=== PATIENT | female | born 1945 | race Caucasian/White ===

== ENCOUNTER 2017-04-12 17:39 | Emergency (ER) | payer OTHER ==
[2017-04-12 17:56] VITALS: BP 149/97; RESP 16; TEMP 98.2; O2SAT 92
--- NOTE | 2017-04-12 18:03 | EDPHY ---
H & P Time Seen by Provider: 04/12/17 17:47 HPI/ROS: Chief complaint. High blood sugar HPI. Patient is 71-year-old female insulin-dependent diabetes who arrived on a bus from [place] this afternoon. She is homeless. While she was waiting for a ride to a homeless custodial she began to feel little bit weak. She called EMS who checked her blood sugar and found to be about 400. Patient's only symptoms is that she has a cough for several days. No chest discomfort. No shortness of breath. No fever, abdominal pain, vomiting or diarrhea. She says she has been using her insulin each day ROS Constitutional. Slight weakness Eyes. no problems with vision ENT. no sore throat, no nasal drainage Cardiovascular. no chest pain Respiratory. no shortness of breath, cough Abdominal. no abdominal pain, no nausea/vomiting, no diarrhea . no problems urinating MS. no calf pain/swelling, no neck/back pain, no joint pain Skin. no rash Lymph. no swollen glands Neuro. no headache, no dizziness, no difficulty walking or with speech Past Medical/Surgical History: Hypertension and insulin-dependent diabetes Social History: Single, homeless, daily smoker, no alcohol Smoking Status: Current every day smoker Physical Exam: General Appearance: Alert well-developed female mild distress vital signs are stable Eyes: Pupils equal and round no pallor or injection. ENT, Mouth: Mucous membranes are moist. Respiratory: No retractions mild inspiratory expiratory rhonchi Cardiovascular: Regular rate and rhythm. Gastrointestinal: Abdomen is soft and nontender, no masses, bowel sounds normal. Neurological: Awake and alert, sensory and motor exams grossly normal. Skin: Warm and dry, no rashes. Musculoskeletal: Neck is supple nontender. Extremities symmetrical, full range of motion. Psychiatric: Patient is oriented X 3, there is no agitation. Constitutional: Initial Vital Signs Temperature (C) 36.8 C 04/12/17 17:39 Heart Rate 93 04/12/17 17:39 Respiratory Rate 16 04/12/17 17:39 Blood Pressure 149/97 H 04/12/17 17:39 O2 Sat (%) 92 04/12/17 17:39 O2 Delivery Mode Room Air Allergies/Adverse Reactions: Penicillins Allergy (Verified 04/12/17 17:51) Home Medications: Medication Instructions Recorded Lantus 100 UNITS/ML (*) 04/12/17 Losartan Potassium 04/12/17 Metformin HCl 04/12/17 Medical Decision Making - Diagnostics Imaging Results: Imaging Impressions Chest X-Ray 04/12/17 18:04 Impression: Chest negative for acute cardiopulmonary abnormality with findings noted as detailed above. Chest x-ray interpreted by me is negative for pneumonia. Consistent with bronchitis Procedures: IV normal saline with 1 L of saline given. 10 units of regular insulin intravenously ED Course/Re-evaluation: Re-evaluation at 6:30 p.m. patient is stable. She and I discussed high blood sugar and treatment plan. She expresses understanding and agreement Re-evaluation at 8:45 p.m.. Patient is stable. Repeat blood sugar 292. She and I discussed treatment plan including criteria for return and importance of follow-up and further evaluation. She expresses understanding and agreement Differential Diagnosis: Hyperglycemia without evidence for diabetic ketoacidosis. Her hyperglycemia is improved after fluids and insulin. I also considered infection. - Data Points Laboratory Results: Laboratory Results 04/12/17 18:00 04/12/17 20:25 04/12/17 04/12/17 04/12/17 20:25 18:00 18:00 WBC RBC Hgb Hct MCV MCH MCHC RDW Plt Count MPV Neut % (Auto) Lymph % (Auto) Coffee % (Auto) Eos % (Auto) Baso % (Auto) Nucleat RBC Rel Count Absolute Neuts (auto) Absolute Lymphs (auto) Absolute Monos (auto) Absolute Eos (auto) Absolute Basos (auto) Absolute Nucleated RBC Immature Gran % Immature Gran # VBG pH 7.33 (7.31-7.42) Sodium 132 mEq/L L mEq/L 130 mEq/L L mEq/L (134-144) (134-144) Potassium 4.2 mEq/L mEq/L 4.8 mEq/L mEq/L (3.5-5.2) (3.5-5.2) Chloride 103 mEq/L mEq/L 95 mEq/L L mEq/L (97-110) (97-110) Carbon Dioxide 22 mEq/l mEq/l 24 mEq/l mEq/l (22-31) (22-31) Anion Gap 7 mEq/L L mEq/L 11 mEq/L mEq/L (8-16) (8-16) BUN 17 mg/dL mg/dL 16 mg/dL mg/dL (7-23) (7-23) Creatinine 0.6 mg/dL mg/dL 0.8 mg/dL mg/dL (0.6-1.0) (0.6-1.0) Estimated GFR > 60 > 60 Glucose 292 mg/dL H mg/dL 413 mg/dL H mg/dL (70-100) (70-100) Calcium 8.2 mg/dL L D mg/dL 9.7 mg/dL mg/dL (8.5-10.4) (8.5-10.4) Specimen Hemolysis 159 04/12/17 18:00 WBC 8.09 10^3/uL 10^3/uL (3.80-9.50) RBC 4.76 10^6/uL 10^6/uL (4.18-5.33) Hgb 14.1 g/dL g/dL (12.6-16.3) Hct 41.6 % % (38.0-47.0) MCV 87.4 fL fL (81.5-99.8) MCH 29.6 pg pg (27.9-34.1) MCHC 33.9 g/dL g/dL (32.4-36.7) RDW 13.2 % % (11.5-15.2) Plt Count 316 10^3/uL 10^3/uL (150-400) MPV 11.5 fL fL (8.7-11.7) Neut % (Auto) 58.0 % % (39.3-74.2) Lymph % (Auto) 28.9 % % (15.0-45.0) Coffee % (Auto) 10.9 % % (4.5-13.0) Eos % (Auto) 1.2 % % (0.6-7.6) Baso % (Auto) 0.9 % % (0.3-1.7) Nucleat RBC Rel Count 0.0 % % (0.0-0.2) Absolute Neuts (auto) 4.69 10^3/uL 10^3/uL (1.70-6.50) Absolute Lymphs (auto) 2.34 10^3/uL 10^3/uL (1.00-3.00) Absolute Monos (auto) 0.88 10^3/uL H 10^3/uL (0.30-0.80) Absolute Eos (auto) 0.10 10^3/uL 10^3/uL (0.03-0.40) Absolute Basos (auto) 0.07 10^3/uL 10^3/uL (0.02-0.10) Absolute Nucleated RBC 0.00 10^3/uL 10^3/uL (0-0.01) Immature Gran % 0.1 % % (0.0-1.1) Immature Gran # 0.01 10^3/uL 10^3/uL (0.00-0.10) VBG pH Sodium Potassium Chloride Carbon Dioxide Anion Gap BUN Creatinine Estimated GFR Glucose Calcium Specimen Hemolysis Medications Given: Discontinued Medications Sodium Chloride (Ns) 1,000 mls @ 0 mls/hr IV EDNOW ONE; Wide Open PRN Reason: Protocol Stop: 04/12/17 18:31 Last Admin: 04/12/17 18:39 Dose: 1,000 mls Insulin Human Regular (Humulin R) 10 unit IVP EDNOW ONE Stop: 04/12/17 18:31 Last Admin: 04/12/17 18:38 Dose: 10 units Departure - Departure Disposition: Home, Routine, Self-Care Clinical Impression: Hyperglycemia due to type 1 diabetes mellitus Condition: Good Instructions: Diabetic Hyperglycemia (ED) Additional Instructions: Drink plenty of fluids and stay hydrated. Use your insulin as prescribed. Check your blood sugars. Return for worsening symptoms. Follow up with [facility] in the next 2-3 days for further evaluation and treatment and possible change of insulin dose Referrals: Patient,NotPresent [Unknown] - As per Instructions [facility] [Outside] - 2-3 days, call for appt.
[2017-04-12 18:17] LABS: % IMMATURE GRANULYOCYTES 0.1 % (0.0-1.1); ABSOLUTE IMMATURE GRANULOCYTES 0.01 10^3/uL (0.00-0.10); ADD DIFF? NO; ADD MORPH? NO; ADD SCAN? NO; ATYPICAL LYMPHOCYTE FLAG 0 (0-99); FRAGMENT RBC FLAG 0 (0-99); HEMATOCRIT 41.6 % (38.0-47.0); HEMOGLOBIN 14.1 g/dL (12.6-16.3); LEFT SHIFT FLG 0 (0-99); LIPEMIA HEMOLYSIS FLAG 90 (0-99); MEAN CELL HEMOGLOBIN 29.6 pg (27.9-34.1); MEAN CELL HEMOGLOBIN CONCENTR. 33.9 g/dL (32.4-36.7); MEAN CELL VOLUME 87.4 fL (81.5-99.8); MEAN PLATELET VOLUME 11.5 fL (8.7-11.7); PLATELET CLUMPS FLAG 10 (0-99); PLATELET COUNT 316 10^3/uL (150-400); RED BLOOD CELL COUNT 4.76 10^6/uL (4.18-5.33); RED CELL DISTRIBUTION WIDTH 13.2 % (11.5-15.2)
[2017-04-12 18:29] LABS: ANION GAP 11 mEq/L (8-16); CALCIUM 9.7 mg/dL (8.5-10.4); CARBON DIOXIDE 24 mEq/l (22-31); CHLORIDE 95 mEq/L (97-110); CREATININE 0.8 mg/dL (0.6-1.0); GLOMERULAR FILTRATION RATE > 60; GLUCOSE 413 mg/dL (70-100); POTASSIUM 4.8 mEq/L (3.5-5.2); SODIUM 130 mEq/L (134-144)
[2017-04-12] MEDS ORDERED: NS 1,000 ML IV ONE (18:30)
[2017-04-12] MEDS ORDERED: INSULIN REGULAR HUMAN 100 UNIT/ML IVP ONE (18:30)
[2017-04-12 20:47] LABS: ANION GAP 7 mEq/L (8-16); CALCIUM 8.2 mg/dL (8.5-10.4); CARBON DIOXIDE 22 mEq/l (22-31); CHLORIDE 103 mEq/L (97-110); CREATININE 0.6 mg/dL (0.6-1.0); GLOMERULAR FILTRATION RATE > 60; GLUCOSE 292 mg/dL (70-100); POTASSIUM 4.2 mEq/L (3.5-5.2); SODIUM 132 mEq/L (134-144); SPECIMEN HEMOLYSIS 159
[2017-04-12 21:26] VITALS: PULSE 88
== END 2017-04-12 21:24 | disposition home or self-care (01) ==
DX: E10.65 Type 1 diabetes mellitus with hyperglycemia (principal); F17.200 Nicotine dependence, unspecified, uncomplicated; E86.9 Volume depletion, unspecified
CPT/HCPCS: 71020; 96361; 96374; 99284; J1815